=== PATIENT | female | born 1965 | race Caucasian/White ===

== ENCOUNTER 2016-10-05 23:25 | Day surgery (SDC) | payer OTHER ==
[~2016-10-05] VITALS: Ht 172.7 cm; Wt 78.5 kg
[~2016-10-05 23:25] MED LIST: ATN25T PO; CTLP20T PO; GUAI-365 PO; SMV20T PO
--- OUTSIDE RECORDS SUMMARY | 2016-10-05 23:29 | XMS REPORT | Referral Summary ---
Author Author [facility] Organization [facility] Address Unknown Phone Unavailable Care Team Providers Care Dragger Name Role Phone Juan Barnes PCP [phone] Encounter VC Date(s): 08/21/16 - 08/21/16 [facility] [address] [place], [place] [address] Discharge Disposition: 01-Home or Self Care Attending Physician: Rinku Torre MD Admitting Physician: Rinku Torre MD Referring Physician: Feliberto Barnes MD Vital Signs No data available for this section Problem List Condition Effective Dates Status Health Status Informant Allergic rhinitis Active (disorder)(Confirmed ) Chronic sinusitis Active (disorder)(Confirmed ) Essential Active hypertension (disorder)(Confirmed ) Hearing loss Active (disorder)(Confirmed ) Otitis media Active (disorder)(Confirmed ) Allergies, Adverse Reactions, Alerts Substance Reaction Severity Status Sulfabenzamide/Sulfacetam Active dolly/Sulfathiazole Medications ALPRAZolam 0.5 mg oral tablet 0.5 mg 1 tabs, Oral, BID, 0 Refill(s) Start Date: 08/21/16 Status: Orderedatenolol 50 mg oral tablet 50 mg 1 tabs, Oral, BID, # 180 tabs, 0 Refill(s) Start Date: 08/21/16 Status: Orderedatorvastatin Oral, Daily, 0 Refill(s) Start Date: 08/21/16 Status: OrderedCiprodex 0.3%-0.1% otic suspension 4 drops, Ear-Both, BID, X 7 days, # 7 mL, 0 Refill(s), Pharmacy: [id number] Start Date: 08/21/16 Stop Date: 08/28/16 Status: Orderedcitalopram 40 mg oral tablet 40 mg 1 tabs, Oral, Daily, # 30 tabs, 0 Refill(s) Start Date: 08/21/16 Status: OrderedCulturelle [employer] caps, Oral, Daily, 0 Refill(s) Start Date: 08/21/16 Status: Orderedfluticasone 27.5 mcg/inh nasal spray 1 sprays, Nasal, Daily, as needed for allergy symptoms, # 10 g, 0 Refill(s) Start Date: 08/21/16 Status: Orderedglimepiride 2 mg oral tablet 2 mg 1 tabs, Oral, Daily, # 30 tabs, 0 Refill(s) Start Date: 08/21/16 Status: OrderedMucinex mg, Oral, q12hr, 0 Refill(s) Start Date: 08/21/16 Status: OrderedWelchol Oral, 0 Refill(s) Start Date: 08/21/16 Status: Ordered Results No data available for this section Immunizations No data available for this section Procedures Procedure Date Related Diagnosis Body Site Sinus Tennis elbow Tonsillectomy Social History Social History Type Response Smoking Status Current every day smoker; Type: Cigarettes; Tobacco use per day: 1 pack or more Assessment and Plan No data available for this section
[2016-10-05] MEDS ORDERED: KETOROLAC 30 MG/ML (TORADOL) 1 ML VIAL IV ONE (23:45)
[2016-10-05] MEDS ORDERED: ONDANSETRON 2 MG/ML (Z0FRAN) 2 ML VIAL IV ONE (23:45)
[2016-10-05] MEDS ORDERED: SODIUM CHLORIDE FLUSH 10 ML SYR IV PRN (23:45)
[2016-10-05] MEDS ORDERED: SODIUM CHLORIDE FLUSH 3 ML SYR IV PRN (23:45)
[2016-10-06] VITALS (11 sets, daily range): BP systolic 101–129; BP diastolic 57–79
[2016-10-06 00:29] LABS: BASOPHILS % (AUTO) 0 % (0-2); EOSINOPHILS # (AUTO) 0.2 10^3uL; EOSINOPHILS % (AUTO) 2 % (0-4); LYMPHOCYTES # (AUTO) 3.2 X10^3; MEAN CORPUSCULAR HGB CONC 33.9 g/dL (31.0-37.0); MEAN CORPUSCULAR VOLUME 92 FL (80-100); MEAN PLATELET VOLUME 9.5 FL (6.0-9.5); MONOCYTES # (AUTO) 1.2 X10^3; MONOCYTES % (AUTO) 8 % (3-11); NEUTROPHILS # (AUTO) 9.3 X10^3; NEUTROPHILS % (AUTO) 66 % (51-67); PLATELET COUNT 304 10^3uL (150-450); WHITE BLOOD COUNT 13.99 10^3uL (4.0-11.0)
[2016-10-06 00:36] LABS: BILIRUBIN,URINE Negative (Negative); CLARITY,URINE Clear; COLOR,URINE Yellow; GLUCOSE, URINE (UA) Negative (Negative); LEUKOCYTE ESTERASE ,URINE Negative (Negative); UROBILINOGEN,URINE 0.2 mg/dL (0.2-1.0)
[2016-10-06] MEDS ORDERED: COLE625T PO (00:37)
[2016-10-06] MEDS ORDERED: ATOR10TA PO (00:37)
[2016-10-06] MEDS ORDERED: ALPR.5T PO (00:37)
[2016-10-06] MEDS ORDERED: GLIM2TAB PO (00:37)
[2016-10-06] MEDS ORDERED: LACT1CAP39 PO (00:37)
[2016-10-06] MEDS ORDERED: FLUT9.9S16 NSEACH (00:37)
[2016-10-06 00:39] LABS: ALBUMIN 3.9 g/dL (3.4-5.0); ANION GAP 13.5 MEQ/L (3-15); TOTAL PROTEIN 7.2 g/dL (6.4-8.5)
[2016-10-06 00:41] LABS: URINE CENTRIFUGED VOLUME 12 mL
[2016-10-06 00:43] LABS: RBC,URINE 20-50 /HPF
--- NOTE | 2016-10-06 04:09 | History and Physical (E) ---
Surgical History & Physical PCP: Feliberto Shore MD CC: RLQ abdominal pain. HPI: Four day history of vague lower abdominal discomfort, progressing to crampy /sharp right lower quadrant pain. Pain radiates to left lower quadrant and 7/ 10. Pain is worse with movement. No other modifying factors. 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 Currently no diarrhea or constipation. She has a flash designer, who is following. Had mild nausea earlier, but hungry now. No vomiting, fever, or chills. ROS: CONSTITUTION: Denies weight loss or gain. Denies fever or chills. Last meal was a Pop Tart at 2100 last night. HEENT: No change in vision or hearing. No sores in mouth, sore throat. Has chronic sinus drainage. CV: No chest pain, palpitations. PULM: No cough, shortness of breath, difficulty breathing. GI: See HPI. : No dysuria. No blood in urine. MS: No new muscle or joint aches and pains. NEURO: No numbness or tingling. No weakness. INTEG: No rashes, lesions, or sores. ENDO: Is cold natured. No polydipsia or polyuria. HEME/LYMPH: No easy bruising or bleeding. No swollen glands. No anesthetic complications. PSYCH: No change in mood or behavior. Coded Allergies: Sulfa (Sulfonamide Antibiotics) (Verified Allergy, Unknown, 10/06/16) Scheduled Atenolol (Atenolol) 50 MG PO DAILY (Reported) Atorvastatin (Lipitor) Unknown Dose PO DAILY (Reported) Citalopram Hydrobromide (Citalopram Hydrobromide) 40 MG PO DAILY (Reported) Colesevelam HCl (Welchol) 625 MG PO DAILY (Reported) Fluticasone Furoate (Flonase Sensimist) 9.9 ML NS DAILY (Reported) Glimepiride (Glimepiride) 2 MG PO DAILY (Reported) Guaifenesin/P-Ephed HCl (Mucinex D ER Tablet) 1 EACH PO DAILY (Reported) Lactobacillus Rhamnosus GG (Culturelle) 1 EACH PO DAILY (Reported) Scheduled PRN Alprazolam (Alprazolam) 0.5 MG PO DAILY PRN PRN ANXIETY (Reported) Discontinued Medications Simvastatin (Simvastatin) 20 MG PO DAILY (Reported) Discontinued Reason: Therapy changed PMH: Non-insulin dependent diabetes mellitus, hypertension, elevated cholesterol PSH: Recent sinus surgery, prior left elbow tendon transfer, tonsillectomy, colonoscopy (2015, normal). Social History: , no children. Works at [employer]. Smokes 1 ppd. No alcohol or illicit drugs. FMH: Parents with hypertension, sister with hypertension and multiple sclerosis. PHYSICAL EXAM GEN: Well developed, obese, in no distress. HEENT: [employer] and conjunctivae clear. No neck mass. CV: RR no murmurs or gallops LUNGS: Clear to P & A. No CVAT. ABD: Soft with normal BS. RLQ tenderness, voluntary guarding, rebound, referred rebound. Positive heel drop test. No mass, organomegaly, or hernia. EXTREMITIES: No edema or tenderness. Pulses 2+ INTEG: No rash or jaundice. NEURO: No focal deficits. Patient is alert and oriented with appropriate affect. Vital Signs Date Time Temp Pulse Resp B/P Pulse Ox O2 Delivery O2 Flow Rate FiO2 10/06/16 00:04 97 Room Air 10/05/16 23:52 99.8 84 18 124/79 Lab Results: Laboratory Results Past 24 Hrs 10/06/16 00:10: CBC shows WBC of 14,000 with normal diff. CMP significant for glucose 135. Lipase normal. Urinalysis shows 2050 RBCs per hpf Imaging: CT shows markedly dilated appendix with mesenteric stranding. Also thickening of thickening of the proximal jejunum, sigmoid, and terminal ileum. Impression: Acute appendicitis. History of hypertension, non-insulin dependent diabetes mellitus, C. Diff colitis, tobacco use, obesity. Bowel wall thickening on CT. Plan: Proceed later this morning to OR for laparoscopic appendectomy. Options, nature , risks discussed with patient (including reactivation of C. Diff), who understands and wishes to proceed. Will consult hospitalist for medical management. She will need further evaluation of other bowel findings later by her flash designer. End of Report . UMA BELTRAN MD Oct 06, 2016 04:03
[2016-10-06] MEDS ORDERED: ONDANSETRON 2 MG/ML (Z0FRAN) 2 ML VIAL IV PRN (04:10)
[2016-10-06] MEDS ORDERED: ACETAMINOPHEN 500 MG TAB (TYLENOL) PO ONE (04:10)
[2016-10-06] MEDS ORDERED: PIPERACILLIN/TAZOBACTAM 3.375 GM in SODIUM CHLORIDE 50 ML IV ONE (04:10)
[2016-10-06] MEDS ORDERED: morphine INJ 4 MG/ML 1 ML SYRINGE IV PRN (04:10)
--- NOTE | 2016-10-06 04:12 | NUR ---
Patient admitted to room 306 at this time. Reports pain 4/10, reports that she is comfortable after recieving pain medication in the ED. No needs at this time. Hibicleanse scrub completed per order. IV fluids started at this time. Patient has signed OR consent. No questions at this time. Will continue to monitor.
[2016-10-06] MEDS ORDERED: PIPERACILLIN/TAZOBACTAM 3.375 GM (ZOSYN) VIAL IV ONE (05:22)
[2016-10-06] MEDS ORDERED: LACTATED RINGERS 1,000 ML IV ONE (05:22)
[2016-10-06] MEDS ORDERED: SODIUM CHLORIDE 50 ML IV ONE (05:23)
--- NOTE | 2016-10-06 06:28 | NUR ---
Patient rests in bed since admission without needs. States that pain remains manageable and that she does not need any pain medication. No nausea. No needs at this time.
--- NOTE | 2016-10-06 07:35 | Diagnostic Imaging Report ---
PROCEDURE: CT abdomen and pelvis with and without contrast. TECHNIQUE: Precontrast acquisitions were acquired through the abdomen and pelvis. Multiple contiguous axial images were obtained through the abdomen and pelvis after the administration of intravenous contrast. INDICATION: Right flank pain. FINDINGS: There is some atelectasis at both lung bases and a wedge-shaped area of consolidation at the right posterior lung base. Liver appears normal. Gallbladder is present. There is a 5 mm cyst in the tail of the pancreas. Spleen is not enlarged. Adrenals are normal. Kidneys appear normal. Small bowel is not dilated. The appendix is distended with a thickened wall and surrounding induration consistent with acute appendicitis. There is a small amount of intraperitoneal free fluid. Uterus is present. Adnexa are unremarkable. IMPRESSION: Acute appendicitis. I agree with preliminary interpretation. Dictated by: Dictated on workstation # [id number]
--- NOTE | 2016-10-06 07:35 | NUR ---
Patient sleeping in bed upon shift assessment. Arouses easily to verbal stimuli. Denies pain while at rest but after walking into bathroom, patient reports RLQ pain rated 2/10 on pain scale. Denies nausea or SOA. HR RRR. Lung sounds CTAB. Bowel sounds audible in all quadrants. Abdomen tender to touch. Updated on plan of care for shift including pain management, tentative surgery time, and activity. Call light in reach.
[2016-10-06] MEDS ORDERED: BUPIVACAINE/EPINEPHRINE 0.25%-1:200,000 (MARCAINE) 30 ML VIAL INJ ONE (07:42)
--- NOTE | 2016-10-06 07:42 | Diagnostic Imaging Report ---
INDICATION: Abdominal pain. PA chest, supine and upright abdominal images were obtained. FINDINGS: Lungs are clear. There is no effusion or pneumothorax. There is no intraperitoneal free air. Bowel gas pattern is normal. There are no pathologic masses or calcifications. IMPRESSION: Negative abdomen. Dictated by: Dictated on workstation # [id number]
[2016-10-06] MEDS ORDERED: morphine INJ 2 MG/ML 1 ML SYRINGE IV PRN (07:50)
[2016-10-06] MEDS ORDERED: LACTATED RINGERS 1,000 ML IV SCH (08:00)
[2016-10-06] MEDS ORDERED: CITA40TA5 PO (08:41)
[2016-10-06] MEDS ORDERED: ATOR40TA2 PO (08:41)
[2016-10-06] MEDS ORDERED: ATN50T PO (08:41)
--- NOTE | 2016-10-06 09:54 | NUR ---
MED REC COMPLETED-current med list obtained from Ext Med History application and retail pharmacy ([facility]).
[2016-10-06] MEDS ORDERED: ROCURONIUM 50 MG/5 ML (ZEMURON) VIAL IV ONE (10:17)
[2016-10-06] MEDS ORDERED: PROPOFOL 20 ML IV ONE (10:17)
[2016-10-06] MEDS ORDERED: ALFENTANIL 500 MCG/ML (ALFENTA) 5 ML AMP IV ONE (10:17)
[2016-10-06] MEDS ORDERED: ONDANSETRON 2 MG/ML (Z0FRAN) 2 ML VIAL ONE (10:17)
[2016-10-06] MEDS ORDERED: diphenhydrAMINE 50 MG/ML INJ (BENADRYL) ONE (10:17)
--- NOTE | 2016-10-06 10:28 | NUR ---
Patient to OR via bed.
[2016-10-06] MEDS ORDERED: SCOPOLAMINE 1.5 MG (TRANSDERM-SCOP) PATCH TD ONE (10:39)
[2016-10-06] MEDS ORDERED: KETOROLAC 60 MG/2 ML (TORADOL) VIAL IM ONE (11:53)
[2016-10-06] MEDS ORDERED: NEOSTIGMINE 1 MG/ML SYRINGE ONE (11:53)
[2016-10-06] MEDS ORDERED: GLYCOPYRROLATE 0.2 MG/ML (ROBINUL) 1 ML VIAL ONE (11:53)
[2016-10-06] MEDS ORDERED: ACETAMINOPHEN 325 MG TAB (TYLENOL) PO PRN (12:15)
--- NOTE | 2016-10-06 12:15 | Post Operative Note (E) ---
Post Op Note 10/06/16 12:13 Pre-Operative Diagnosis: Acute appendicitis Post-Operative Diagnosis: Same Procedure: Laparoscopic appendectomy Surgeon: Anjel Attending Physician: Мария Findings: Same. Anesthesia: GOT EBL: 20 ml Drains: None Specimem: appendix, photos Complications None Condition: Good. Op note dict #[id number] UMA BELTRAN MD Oct 06, 2016 12:15
--- NOTE | 2016-10-06 12:50 | NUR ---
Patient returns to room 306 via bed. Alert and reports abdominal pain rated 3/10 on pain scale. Three abdominal incisions clean and dry. No drainage noted. Updated on plan of care including pain management, diet, ambulating, and voiding. at bedside. Call light in reach.
[2016-10-06] MEDS: oxyCODONE IMMEDIATE RELEASE 5 MG (OXYIR) TAB PO PRN ×2 (12:52→17:41)
--- NOTE | 2016-10-06 13:25 | OPERATIVE REPORT ---
DATE OF OPERATION: 10/06/2016 PRE-OPERATIVE DIAGNOSIS: Acute appendicitis POST-OPERATIVE DIAGNOSIS: Acute appendicitis OPERATIVE PROCEDURE: Laparoscopic appendectomy SURGEON: Duarte Hobbs MD WHISKEY FILTERER: Kellie Garcia RN, [facility] ANESTHESIA: General orotracheal POSITION: Trendelenburg with left rotation PREP: Chlorhexidine ESTIMATED BLOOD LOSS: 20 mL FINDINGS: Acutely inflamed, and dilated appendix which was adherent to the surrounding mesentery. Within this area of adhesion was a tiny pocket of purulent material. Slightly inflamed adjacent terminal ileum. DESCRIPTION OF PROCEDURE: Following satisfactory induction of anesthesia, the patient was prepped and draped in sterile fashion. Local anesthetic of 0.25% Marcaine with epinephrine was infiltrated at planned incision sites. A small, supraumbilical vertical midline incision was made. This was carried down to and through the fascia under direction vision. The Norma blunt tipped cannula was inserted and anchored to fascia with a pursestring suture of #0 Vicryl. The videolaparoscope was introduced confirming intraperitoneal placement and the peritoneal cavity insufflated to a maximum pressure of 15 mmHg with carbon dioxide. Accessory cannulas were then placed under direct vision as follows. A 5-mm cannulas in the left lower quadrant and suprapubic positions. Care was taken to avoid the patient's left lower quadrant tattoo. Routine inspection revealed the above findings. The liver and gallbladder appeared normal, as did the peritoneal surfaces. Using blunt dissection, the appendix was dissected off the mesentery. The appendiceal mesentery was dissected free. Windows were created in the mesentery. The appendiceal mesentery was then transected using the Ethicon Harmonic scalpel dina in multiple bites. The base of the appendix was doubly ligated with #0 Endoloops and a third Endoloop applied across the specimen side. The appendix was transected sharply. The mucosa of the appendiceal stump was cauterized with electrocautery. The specimen was placed in the specimen bag. The operative site was irrigated with saline, which was evacuated demonstrating good hemostasis. Closure was accomplished as follows. Accessory cannulas were removed under direct vision revealing good hemostasis at their insertion sites. The peritoneum was evacuated of excess carbon dioxide. The appendix in specimen bag was removed by way of the supraumbilical incision and submitted to pathology. Supraumbilical incision fascia was closed with the previously placed pursestring suture of #0 Vicryl. The skin incisions were closed with continuous subcuticular suture of 4-0 Monocryl and Dermabond dressing. The patient tolerated the procedure well and transferred to recovery in stable condition. Final instrument, needle and sponge counts correct.
--- NOTE | 2016-10-06 16:10 | NUR ---
Patient tolerates PO intake of clear liquids. Ambulates 1/2 lap in almanzar. IV saline locked per order. Diet advanced to medium diabetic. Has voided without difficulty. Will continue to monitor.
--- NOTE | 2016-10-06 17:39 | Progress Note (E) ---
Progress Note Pain controlled. Tolerating po well. Ambulating and voiding without difficulty. Vitals stable, lungs clear, abdomen soft with normal BS. Incisions intact. Condition: good Discharge home. UMA BELTRAN MD Oct 06, 2016 17:39
--- NOTE | 2016-10-06 17:43 | Discharge Instructions (E) ---
Discharge Instructions Instructions Keep wounds clean. No dressing required. May shower, but no immersion in water for 2 weeks. Call for fever over 100.5, increased pain, nausea, wound redness, or purulent drainage Activity Instructions Normal as is comfortable. No lifting over 20 lbs for [address] pain free off pain meds. Doctor's Appointment 2 weeks, Dr. Hobbs, . Discharge Diet: Regular UMA HOBBS MD Oct 06, 2016 17:43
[2016-10-06] MEDS ORDERED: OXC5T PO (17:44)
--- NOTE | 2016-10-06 18:10 | NUR ---
Dr. Hobbs here to see patient. Discharge order received. IV Discontinued with catheter intact. No redness or swelling noted at insertion site. Instructions provided to patient and with verbal and written understanding expressed. Prescription provided to patient. Dismissed via wheelchair accompanied by [facility] and . No further needs.
--- OUTSIDE RECORDS SUMMARY | 2016-10-09 08:50 | XMS REPORT | Continuity of Care Document ---
Author Author [facility] Address Unknown Phone Unavailable Care Team Providers Care Dry Cleaning Supervisor Name Role Phone Feliberto Shore MD PCP [phone] Insurance Providers Payer Name Policy Number Subscriber Name Relationship [employer] [id number] Rayne Smith 16 Self / Same As Patient Advance Directives Directive Response Recorded Date/Time Advanced Directives No 10/06/16 4:14am Chief Complaint and Reason for Visit Chief Complaint ACUTE APPENDICITIS Reason for Visit Appendicitis Problems Active Problems Medical Problem Onset Date Status Appendicitis Unknown Acute Medications Current Home Medications Medication Dose Units Route Directions Days/Qty Instructions Start Date Glimepiride 2 Mg 2 Mg ORAL Daily 10/06/16 Lactobacillus Rhamnosus Gg 1 Each 1 Each ORAL Daily 10/06/16 Alprazolam (Xanax) 0.5 Mg 0.25-0.5 Mg ORAL Every 8HRS as needed for Anxiety 10/06/16 Colesevelam Hcl 625 Mg 1,250 Mg ORAL Daily 10/06/16 Fluticasone Furoate 9.9 Ml 1-2 Sprays Each Nostril Daily 10/06/16 Atenolol (Tenormin) 50 Mg 50 Mg ORAL Daily 10/06/16 Citalopram Hydrobromide (Celexa) 40 Mg 40 Mg ORAL Daily 10/06/16 Atorvastatin Calcium 40 Mg 40 Mg ORAL Daily 10/06/16 Oxycodone Hcl (Roxicodone) 5 Mg 5 Mg ORAL Every 4HRS as needed for Pain 4- 6 Numeric Scale 30 10/06/16 Past Home Medications Medication Directions Ordered Status Atenolol (Tenormin) 25 Mg Tablet, 50 Mg Oral Daily 02/27/13 Discontinued Simvastatin (Zocor) 20 Mg Tablet, 20 Mg Oral Daily 02/27/13 Discontinued Citalopram Hydrobromide (Celexa) 20 Mg Tablet, 40 Mg Oral Daily 02/27/13 Discontinued Guaifenesin/Pseudoephedrine Hcl 1 Each Tab.er.12h, 1 Each Oral Daily Discontinued Atorvastatin 10 Mg Tablet, Unknown Dose Oral Daily 10/06/16 Discontinued Social History Query Response Start Date Stop Date Smoking Status Heavy tobacco smoker 10+ Hospital Discharge Instructions Patient's Instructions Instructions Instructions Keep wounds clean. No dressing required. May shower, but no immersion in water for 2 weeks. Call for fever over 100.5, increased pain, nausea, wound redness, or purulent drainage Activity Instructions Normal as is comfortable. No lifting over 20 lbs for [address] until pain free off pain meds. Doctor's Appointment 2 weeks, Dr. Beltran, . Discharge Diet: Regular Discharge Plan of Care Discharge Plan of Care #1 Problem: Pain Goal: Prevention post infection Instructions for meeting goal: follow all instructions Plan of Care Discharge Date 10/06/16 6:09pm Disposition 01 HOME OR SELF-CARE Prescriptions See Medication Section Care Plan and Goals See Discharge Instructions Section Functional Status Query Response Date Recorded Level of Conscious Alert Oriented x4 October 06, 2016 7:47am Movement Moves extremities October 06, 2016 7:47am Allergies, Adverse Reactions, Alerts Allergen Type Severity Reaction Status Last Updated Sulfa (Sulfonamide Antibiotics) Allergy Unknown Active 10/06/16 Immunizations No immunization records. Vital Signs Acute Vital Signs Vital Response Date/Time Temperature (Fahrenheit) 97.4 10/06/2016 3:09pm Pulse 69 bpm 10/06/2016 3:09pm Respirations 20 10/06/2016 3:09pm Height 5 ft 8 in Weight 173 lb Body Mass Index 26.0 kg/m^2 Results Laboratory Results Test Name Result Units Flags Reference Collection Date/Time Result Date/ Time Comments White Blood Count 13.99 10^3uL H 4.0-11.0 10/06/2016 12:10/06/2016 12:30am Red Blood Count 4.10 10^6uL 4.00-5.00 10/06/2016 12:10/06/2016 12: 30am Hemoglobin 12.7 g/dL 12.0-15.5 10/06/2016 12:10/06/2016 12:30am Hematocrit 37.50 % 35.00-45.00 10/06/2016 12:10/06/2016 12:30am Mean Corpuscular Volume 92 FL 80-100 10/06/2016 12:10/06/2016 12: 30am Mean Corpuscular Hemoglobin 31.0 PG 26.0-34.0 10/06/2016 12:2016 12:30am Mean Corpuscular Hemoglobin Concent 33.9 g/dL 31.0-37.0 10/06/2016 12: 10/06/2016 12:30am Red Cell Distribution Width 12.4 % 11.8-15.6 10/06/2016 12:2016 12:30am Platelet Count 304 10^3uL 150-450 10/06/2016 12:10/06/2016 12: 30am Mean Platelet Volume 9.5 FL 6.0-9.5 10/06/2016 12:10/06/2016 12: 30am Neutrophils (%) (Auto) 66 % 51-67 10/06/2016 12:10/06/2016 12: 30am Lymphocytes (%) (Auto) 23 % 20-46 10/06/2016 12:10/06/2016 12: 30am Monocytes (%) (Auto) 8 % 3-11 10/06/2016 12:10/06/2016 12:30am Eosinophils (%) (Auto) 2 % 0-4 10/06/2016 12:10/06/2016 12:30am Basophils (%) (Auto) 0 % 0-2 10/06/2016 12:10/06/2016 12:30am Neutrophils # (Auto) 9.3 X10^3 10/06/2016 12:10/06/2016 12:30am Lymphocytes # (Auto) 3.2 X10^3 10/06/2016 12:19am 10/06/2016 12:30am Monocytes # (Auto) 1.2 X10^3 10/06/2016 12:19am 10/06/2016 12:30am Eosinophils # (Auto) 0.2 10^3uL 10/06/2016 12:19am 10/06/2016 12: 30am Basophils # (Auto) 0.1 10^3uL 10/06/2016 12:19am 10/06/2016 12:30am Volume Urine Centrifuged 12 mL 10/06/2016 12:10am 10/06/2016 12: 43am Urine Collection Type CLEAN CATCH 10/06/2016 12:10am 10/06/2016 12: 43am Urine Color Yellow 10/06/2016 12:10am 10/06/2016 12:36am Urine Clarity Clear 10/06/2016 12:10am 10/06/2016 12:36am Urine pH 5.0 5.0 - 8.0 10/06/2016 12:10am 10/06/2016 12:36am Urine Specific [place] 1.025 1.005-1.030 10/06/2016 12:10am 2016 12:36am Urine Protein Negative Negative 10/06/2016 12:10am 10/06/2016 12: 36am Urine Glucose (UA) Negative Negative 10/06/2016 12:10am 10/06/2016 12 :36am Urine Blood 3+ H Negative 10/06/2016 12:10am 10/06/2016 12:36am Urine Ketones Negative Negative 10/06/2016 12:10am 10/06/2016 12: 36am Urine Nitrite Negative Negative 10/06/2016 12:10am 10/06/2016 12: 36am Urine Bilirubin Negative Negative 10/06/2016 12:10am 10/06/2016 12: 36am Urine Urobilinogen 0.2 mg/dL 0.2-1.0 10/06/2016 12:10am 10/06/2016 12: 36am Urine Leukocyte Esterase Negative Negative 10/06/2016 12:10am 2016 12:36am Urine Microscopic RBC 20-50 /HPF 10/06/2016 12:10am 10/06/2016 12: 43am Urine WBC None Seen /HPF 10/06/2016 12:10am 10/06/2016 12:43am Urine Bacteria Rare /HPF 10/06/2016 12:10a10/06/2016 12:43am Urine Squamous Epithelial Cells 5-10 /LPF 10/06/2016 12:10a2016 12:43am Urine Mucus 1+ 10/06/2016 12:10a10/06/2016 12:43am Sodium Level 142 mmol/L 135-150 10/06/2016 12:1910/06/2016 12:39am Potassium Level 3.7 mmol/L 3.5-5.1 10/06/2016 12:10/06/2016 12: 39am Chloride Level 110 mmol/L H 98-108 10/06/2016 12:10/06/2016 12: 39am Carbon Dioxide Level 23 mmol/L 22-29 10/06/2016 12:10/06/2016 12: 39am Anion Gap 13.5 MEQ/L 3-15 10/06/2016 12:10/06/2016 12:39am Blood Urea Nitrogen 12 mg/dL 7-18 10/06/2016 12:10/06/2016 12: 39am Creatinine 0.65 mg/dL 0.6-1.2 10/06/2016 12:10/06/2016 12:39am BUN/Creatinine Ratio 18 10-20 10/06/2016 12:10/06/2016 12:39am Estimat Glomerular Filtration Rate 115.4 10/06/2016 12:2016 12:39am Estimated GFR (Non- 95.4 10/06/2016 12:2016 12:39am Glucose Level 135 mg/dL H 70-110 10/06/2016 12:10/06/2016 12:39am Calculated Osmolality 276 mosm/L L 280-300 10/06/2016 12:2016 12:39am Calcium Level 9.2 mg/dL 8.8-10.8 10/06/2016 12:10/06/2016 12:39am Calcium/Ionized Calcium Ratio 4.0 mg/dL 3.8-4.6 10/06/2016 12: 12:39am Total Bilirubin 0.5 mg/dL 0.1-1.0 10/06/2016 12:1910/06/2016 12: 39am Alkaline Phosphatase 126 U/L 38-126 10/06/2016 12:10/06/2016 12: 39am Aspartate Amino Transf (AST/SGOT) 41 U/L H 15-37 10/06/2016 12:19 12:39am Alanine Aminotransferase (ALT/SGPT) 63 U/L 30-65 10/06/2016 12:19 12:39am Total Protein 7.2 g/dL 6.4-8.5 10/06/2016 12:10/06/2016 12:39am Albumin 3.9 g/dL 3.4-5.0 10/06/2016 12:10/06/2016 12:39am Albumin/Globulin Ratio 1.181 1.1-1.8 10/06/2016 12:1910/06/2016 12 :39am Amylase Level 64 U/L 25-115 10/06/2016 12:1910/06/2016 12:39am Lipase 108 U/L 23-300 10/06/2016 12:1910/06/2016 12:39am C-Reactive Protein 6.90 mg/dL H 0.0-0.9 10/06/2016 12:1910/06/2016 2: 19am Procedures No known history of procedures. Encounters Encounter Location Arrival/Admit Date Discharge/Depart Date Attending Provider Discharged Inpatient (obs) [facility] 10/06/16 3:44am 10/06/16 6: 09pm UMA BELTRAN MD Recent Diagnosis Appendicitis
== END 2016-10-06 23:31 | disposition home or self-care (01) ==
LOC: ED 23:26 → UNDOADMIN 10-06 03:19 → MED/SURG 10-06 03:19 → UNDOADMOB 10-06 03:44 → UNDODISOB 10-06 18:09 → ASC 10-06 23:30 → MED/SURG 10-09 03:44
PROVIDERS: ATTEND Surgery
DX: K35.3 Acute appendicitis with localized peritonitis (principal); E11.9 Type 2 diabetes mellitus without complications; I10 Essential (primary) hypertension; E78.5 Hyperlipidemia, unspecified; F17.210 Nicotine dependence, cigarettes, uncomplicated
CPT/HCPCS: 36415; 44970; 74022; 74178; 80053; 81003; 81015; 82150; 83690; 85025; 86140; 93005; 96361; 96374; 96375; 99218; 99285; J1200; J1885; J2405; J2710; J3490; J7030; Q9967; 99284

== ENCOUNTER 2016-10-17 02:30 | Inpatient (IN) | payer OTHER ==
[~2016-10-17] VITALS: Ht 172.7 cm; Wt 77.9 kg
--- NOTE | 2016-10-17 03:30 | NUR ---
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 Rates pain 5/10 at this time.
[2016-10-17 03:46] LABS: MEAN CORPUSCULAR HEMOGLOBIN 30.2 PG (26.0-34.0); MEAN CORPUSCULAR HGB CONC 33.2 g/dL (31.0-37.0); MEAN CORPUSCULAR VOLUME 91 FL (80-100); MEAN PLATELET VOLUME 9.2 FL (6.0-9.5); PLATELET COUNT 408 10^3uL (150-450)
[2016-10-17 03:55] LABS: BILIRUBIN,URINE Negative (Negative); GLUCOSE, URINE (UA) Negative (Negative); LEUKOCYTE ESTERASE ,URINE Negative (Negative); PH,URINE 5.5 (5.0 - 8.0); UROBILINOGEN,URINE 0.2 mg/dL (0.2-1.0)
[2016-10-17 03:58] LABS: WHITE BLOOD COUNT 30.39 10^3uL (4.0-11.0)
[2016-10-17 04:00] LABS: ALBUMIN 4.1 g/dL (3.4-5.0); ANION GAP 18.7 MEQ/L (3-15); TOTAL PROTEIN 7.6 g/dL (6.4-8.5)
[2016-10-17 04:00] LABS: CLARITY,URINE Slightly Cloudy; COLOR,URINE Dark Yellow
[2016-10-17 04:03] LABS: BAND NEUTROPHILS % 0 % (0-6); EOSINOPHILS % 0 % (0-4); LYMPHOCYTES # 2.1 #; MONOCYTES # 1.2 #; MONOCYTES % 4 % (3-11); RBC MORPH SEE REFERENCE (NORMAL); SEGMENTED NEUTROPHILS % 89 % (51-67); TOTAL CELLS COUNTED 100
[2016-10-17 04:04] LABS: ANISOCYTOSIS SLIGHT
[2016-10-17 04:04] LABS: URINE CENTRIFUGED VOLUME 12 mL
[2016-10-17 04:05] LABS: RBC,URINE 20-50 /HPF
[2016-10-17] MEDS ORDERED: ONDANSETRON 2 MG/ML (Z0FRAN) 2 ML VIAL IV ONE (04:25)
[2016-10-17] MEDS ORDERED: SODIUM CHLORIDE FLUSH 3 ML SYR IV ONE (04:25)
[2016-10-17] MEDS ORDERED: HYDROmorphone 1 MG/ML (DILAUDID) SYRINGE IV ONE (04:25)
--- NOTE | 2016-10-17 04:45 | NUR ---
Pt to ct scan via stretcher.
--- NOTE | 2016-10-17 05:00 | NUR ---
Pt back to room from ct scan.
--- NOTE | 2016-10-17 05:07 | NUR ---
O2 applied via nc at 2L. O2 sat 89% on room air. O2 sat increased to 93% on 2L.
[2016-10-17] MEDS ORDERED: PIPERACILLIN/TAZOBACTAM 3.375 GM in SODIUM CHLORIDE 50 ML IV ONE (06:00)
--- NOTE | 2016-10-17 06:25 | NUR ---
Pt arrives to 303 via w/c from ED. Ambulates to weight chair and bed independently. Antibiotics infusing w/o difficulty. Resp even and non labored on RA. Surgical incisions healing well. See admission assessment for further details.
[2016-10-17 06:28] VITALS: BP 123/71
[2016-10-17 06:35] VITALS: BP 123/71
[2016-10-17] MEDS ORDERED: HYDROmorphone 1 MG/ML (DILAUDID) SYRINGE IV PRN (07:00)
[2016-10-17] MEDS ORDERED: ONDANSETRON 2 MG/ML (Z0FRAN) 2 ML VIAL IV PRN (07:00)
[2016-10-17 07:21] VITALS: BP 102/61
--- NOTE | 2016-10-17 08:19 | Diagnostic Imaging Report ---
INDICATION: Abdominal pain Abdominal series performed in a routine fashion with a frontal chest radiograph and supine and upright abdominal films. Frontal chest view shows heart normal in size with the lungs clear. There is no pneumothorax or pleural fluid. There is no free intraperitoneal air. The abdominal bowel gas pattern is unremarkable. There is moderate stool in the colon. There are phleboliths in the pelvis. IMPRESSION: No sign of free air or bowel obstruction. Unremarkable bowel gas pattern. No acute pulmonary infiltrate. Dictated by: Dictated on workstation # [id number]
--- NOTE | 2016-10-17 08:38 | Diagnostic Imaging Report ---
PROCEDURE: CT abdomen and pelvis with contrast. TECHNIQUE: Multiple contiguous axial images were obtained through the abdomen and pelvis after administration of intravenous contrast. INDICATION: Pain. 10 days postop appendectomy. Compared with study 10/06/2016. FINDINGS: There has been interval appendectomy. There is a rim-enhancing new somewhat bilobed-configured fluid collection in the cul-de-sac measuring 6.6 cm transverse with maximal AP dimension 2.2 cm and measuring 2.8 cm cephalocaudal in the coronal reconstructions. Some thickening of the adjacent rectosigmoid which may be secondary inflammation as well as some presacral edema. No pericecal fluid collection. Bibasilar partial atelectasis. The liver, gallbladder, bile ducts, spleen, adrenals, pancreas all unremarkable. There is atherosclerotic aortic disease without aneurysm. No abdominal wall fluid collection. The urinary bladder unremarkable with no intravesical air. There is no hydronephrosis. IMPRESSION: Rim-enhancing fluid collection in the pelvic cul-de-sac suspicious for abscess with adjacent edema and regional inflammatory change. No pericecal fluid collection. Interval appendectomy noted. Unobstructed urinary tracts. Bibasilar partial atelectasis. Agree with preliminary. Dictated by: Dictated on workstation # [id number]
--- NOTE | 2016-10-17 08:48 | History and Physical (E) ---
Surgical History & Physical PCP: Feliberto Shore MD CC: Pelvic pain HPI: This patient presents to the emergency room with onset of suprapubic pain yesterday. The pain initially was crampy but then progressed to become sharp in nature. Upon presentation to the emergency room pain was 9 out of 10. Currently 4 out of 10. The pain occasionally radiates to the rectal area. No modifying factors. No change with bowel movements or urination. Patient denies dysuria, hematuria, pyuria, pneumaturia, fecal urea. She had 2 soft formed bowel movements yesterday. No diarrhea. No melena or bright red blood per rectum. Patient had mild nausea yesterday but no vomiting. No fever or chills. Patient had laparoscopic appendectomy for acute appendicitis 10 days ago. 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 ROS: CONSTITUTION: Denies weight loss or gain. Denies fever or chills. HEENT: No change in vision or hearing. No sores in mouth, sore throat. Has chronic sinus drainage. CV: No chest pain, palpitations. PULM: No cough, shortness of breath, difficulty breathing. GI: See HPI : See HPI MS: No new muscle or joint aches and pains. NEURO: No numbness or tingling. No weakness. INTEG: No rashes, lesions, or sores. ENDO: Is cold natured. No polydipsia or polyuria. HEME/LYMPH: No easy bruising or bleeding. No anesthetic problems. No swollen glands. PSYCH: No change in mood or behavior. Last meal was at 1800 yesterday. She had a sip of water at 0200 today. Coded Allergies: Sulfa (Sulfonamide Antibiotics) (Verified Allergy, Unknown, 10/17/16) Scheduled Atenolol (Atenolol) 50 MG PO DAILY (Reported) Atorvastatin (Lipitor) 40 MG PO DAILY (Reported) Citalopram Hydrobromide (Citalopram Hydrobromide) 40 MG PO DAILY (Reported) Colesevelam HCl (Welchol) 1,250 MG PO DAILY (Reported) Fluticasone Furoate (Flonase Sensimist) 1-2 SPRAYS NSEACH DAILY (Reported) Glimepiride (Glimepiride) 2 MG PO DAILY (Reported) Lactobacillus Rhamnosus GG (Culturelle) 1 EACH PO DAILY (Reported) Scheduled PRN Alprazolam (Alprazolam) 0.25-0.5 MG PO Q8H PRN PRN ANXIETY (Reported) Oxycodone HCl (OxyIR) 5 MG PO Q4H PRN PRN Pain 4-6 numeric scale PMH: [id number] diabetes mellitus, diet-controlled, hypertension, elevated cholesterol. PSH: Laparoscopic appendectomy, 10/06/2016. Sinus surgery, left elbow tendon transfer, tonsillectomy, colonoscopy (2015, normal). Social History: Patient is with no children. She works in [employer] at a [employer] She smokes 1 pack per day and denies alcohol or illicit drug use. FMH: Parents with hypertension, sister with hypertension and multiple sclerosis. 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 Neck supple, nontender, without mass. CV: RR with no murmurs or gallops. LUNGS: Clear to P & A. No CVA tenderness. ABD: Abdomen is soft with mild suprapubic tenderness and voluntary guarding with deep palpation. No rebound tenderness. Remainder of abdomen is nontender. Normal bowel sounds present. No mass, organomegaly, or hernia. Incisions from surgery are well-healed with no erythema, tenderness, crepitance, or fluctuance. No groin lymphadenopathy. : Bimanual exam revealed mild cervical motion tenderness with no palpable mass, though there is a suggestion of fullness in the cul-de-sac area. Digital rectal exam revealed no palpable mass or tenderness. Normal sphincter tone present. EXTREMITIES: No edema or tenderness. Pulses 2+ INTEG: No rash or jaundice. NEURO: No focal deficits. Patient is alert and oriented with appropriate affect. Vital Signs Date Time Temp Pulse Resp B/P Pulse Ox O2 Delivery O2 Flow Rate FiO2 10/17/16 07:21 98.0 77 16 102/61 91 Room air 10/17/16 06:03 2 Lab Results: Laboratory Results Past 24 Hrs 10/17/16: Laboratory values significant for white count of 30,390 with 89 polys and 0 bands. Metabolic profile significant for glucose 165, ALP 72, and alkaline phosphatase 137. C-reactive protein was elevated at 4.70. Lipase is normal. Urinalysis showed 20-50 red cells per high-power field with specific gravity 1.025, otherwise negative. Imaging: Plain films show nonspecific bowel gas pattern. CT scan of the abdomen and pelvis show a 6 cm pelvic abscess. Impression: Postoperative pelvic abscess, status post laparoscopic appendectomy. History of diet-controlled diabetes, hypertension, recent C. difficile colitis. Plan: Admit (intravenous antibiotic therapy. Admit, intravenous antibiotic therapy, abscess drainage. The patient can be transferred to [place] for this today.The abscess is too far cephalad to allow percutaneous rectal drainage. I reviewed the films with radiologist, Dr. Fitzgerald, in [place]. He feels this can be drained percutaneously under CT guidance via a transgluteal approach. He wants to have a PT PTT drawn prior to the procedure. If not, the patient will require surgical drainage by way of laparotomy. End of Report . UMA BELTRAN MD Oct 17, 2016 08:28
[2016-10-17] MEDS: oxyCODONE IMMEDIATE RELEASE 5 MG (OXYIR) TAB PO PRN (09:26)
--- NOTE | 2016-10-17 09:26 | NUR ---
PRN OxyIR given at this time for c/o lower medial abd pain rated 6/10. Pt just returned from shower. Informed pt we would let her know as soon as we have any info for transfer to [place] for drain procedure. NS @ 100mL/hr infusing at this time.
[2016-10-17] MEDS ORDERED: PIPERACILLIN/TAZOBACTAM 3.375 GM (ZOSYN) VIAL IV ONE (10:51)
[2016-10-17] MEDS ORDERED: SODIUM CHLORIDE 100 ML ONE (10:51)
[2016-10-17] MEDS: PIPERACILLIN/TAZOBACTAM 3.375 GM in SODIUM CHLORIDE 100 ML IV SCH ×2 (11:03→20:27)
--- NOTE | 2016-10-17 11:25 | NUR ---
Pt transferred to [facility] at 1114 via EMS. Skin warm, dry, intact. Resprs nonlabored, even on RA. NS infusing at 100mL/hr concurrently with Zosyn at 100mL/hr. to follow to receiving facility. Belongings sent with patient include pajama pants and slippers that were on pt and pt's cell phone. Belongings left in room include pt's robe from home. Report given to Marietta Peck RN at [facility] at 1117.
--- NOTE | 2016-10-17 20:00 | NUR ---
Pt returned from [place] via EMS at this time. Denies nausea, vomiting, rates pain 4/10 at this time. Reports she feels much better than she did earlier, after surgery. EMS says pt was on 2LPM of O2 via NC for desaturation, and had a temp of 101.2, when last checked, when checked at 1999 temp is 96.6 orally. Drain to buttock is in place, has small amount of serosanguineous drainage at this time. SL is patent, no redness, swelling, or s/s of infection noted at this time. Dr. Hobbs was notified of pts arrival. Call light is in reach, will continue to monitor.
[2016-10-17 20:19] VITALS: BP 104/54
[2016-10-17] MEDS ORDERED: SODIUM CHLORIDE 250 ML ONE (20:22)
[2016-10-17] MEDS: SODIUM CHLORIDE FLUSH 10 ML SYR IV PRN (20:27)
--- NOTE | 2016-10-17 20:30 | NUR ---
Gave 1800 Zosyn at 2030, will give 0000 dose late and try to get it back on schedule by the 0600 dose.
[2016-10-17] MEDS: ATENOLOL 50 MG (TENORMIN) TAB PO SCH (21:23)
[2016-10-18 00:10] VITALS: BP 124/67
--- NOTE | 2016-10-18 00:30 | NUR ---
Pt has a temp of 100.9, gave 2 tabs PO of Tylenol 325mg PRN for temp. Rates pain a 2/10 at this time. Denies need for pain medication. Call light in reach, will continue to monitor.
[2016-10-18] MEDS: ACETAMINOPHEN 325 MG TAB (TYLENOL) PO PRN ×2 (00:33→21:06)
[2016-10-18] MEDS: PIPERACILLIN/TAZOBACTAM 3.375 GM in SODIUM CHLORIDE 100 ML IV SCH ×5 (02:02→23:42)
--- NOTE | 2016-10-18 03:50 | NUR ---
VS are rechecked, temp is 97.6, pt continues to rate pain 2/10 at this time. Will continue to monitor.
[2016-10-18 04:22] VITALS: BP 118/73
[2016-10-18 05:54] LABS: MEAN CORPUSCULAR HEMOGLOBIN 30.6 PG (26.0-34.0); MEAN CORPUSCULAR VOLUME 93 FL (80-100); MEAN PLATELET VOLUME 9.2 FL (6.0-9.5); PLATELET COUNT 313 10^3uL (150-450); WHITE BLOOD COUNT 24.02 10^3uL (4.0-11.0)
[2016-10-18 06:07] LABS: BAND NEUTROPHILS % 7 % (0-6); EOSINOPHILS % 0 % (0-4); LYMPHOCYTES # 2.9 #; MONOCYTES # 0.5 #; MONOCYTES % 2 % (3-11); RBC MORPH NORMAL (NORMAL); SEGMENTED NEUTROPHILS % 79 % (51-67); TOTAL CELLS COUNTED 100
[2016-10-18 06:11] LABS: ANION GAP 16.4 MEQ/L (3-15)
[2016-10-18 07:28] VITALS: BP 113/68
--- NOTE | 2016-10-18 07:45 | NUR ---
Patient sleeping in bed upon shift assessment. Arouses easily to verbal stimuli. Reports generalized abdominal pain rated 2/10 on pain scale. Denies nausea, chills, or other distress. Abdomen soft and flat, non-tender to touch. Drain intact to buttock. Small amount of serosanguineous drainage present. Afebrile this am. 1L of 02 titrated to roomair for saturation of 96%. Updated on plan of care for shift. Call light in reach.
[2016-10-18] MEDS: ATENOLOL 50 MG (TENORMIN) TAB PO SCH ×2 (08:24→21:00)
--- NOTE | 2016-10-18 08:30 | NUR ---
Patient maintaining oxygen saturation of 94% on roomair. Will continue to monitor.
--- NOTE | 2016-10-18 08:50 | Progress Note (E) ---
Progress Note Surgery note Subjective: Minimal pain. No nausea. Voiding without difficulty. Objective: Temp 100.9 over night. BP and pulse normal. Required supplemental O2 overnight (after sedation for the procedure). Has voided. Lungs clear, abdomen soft with minimal suprapubic tenderness. No peritoneal signs. Normal bowel sounds. Drainage serosanguinous, 15 ml overnight. WBC improved to 24k today. Glucose 163. Impression: Stable. Recommendations: I have asked the hospitalist to evaluate regarding medical issues, especially her diabetes. Pulmonary toilet. Continue Rx. UMA BELTRAN MD Oct 18, 2016 08:50
--- NOTE | 2016-10-18 09:54 | NUR ---
MED REC COMPLETED-current med list obtained from Ext Med History application and patient interview. Conducted by Pari Marcos, PharmD Candidate 2017.
[2016-10-18] MEDS: oxyCODONE IMMEDIATE RELEASE 5 MG (OXYIR) TAB PO PRN ×2 (10:12→17:01)
--- NOTE | 2016-10-18 10:37 | History and Physical (E) ---
History & Physical Hospitalist Consult Diabetic Management PCP: Feliberto Shore MD Surgeon- Dr Hobbs CC: Diabetic management HPI: Rayne is a 51 year old female s/p Appendectomy 10 days ago and now with a pelvic abscess and had a percutaneous drain placed in [place] yesterday. She is a known type 2 diabetic and we have been asked to consult for medical management. Last BS was 164. She takes Glyburide daily at home and can't remember her last A1C. Denies nausea or vomiting, no fevers reported. Antibiotics are managed per Surgery. Labs reviewed. She is eating a diabetic diet and tolerating it fairly well. PMH: HTN HLD C-Diff- s/p fecal transplant DM-2 Tobacco Abuse PSH: Sinus Surgery 2017 Ear Tubes 2017 T&A Left elbow tendon transfer Appendectomy 2017 Percutaneous Drain Left Gluteal Region 2017 ALLERGIES: Sulfa HOME MEDICATIONS: Please see list at end of report. FH: Parents Mom had CAD Father had COPD SH: , no children, lives in [place] and works at [employer], smokes but does not use alcohol ROS: CONSTITUTION: Denies weight loss or gain. Denies fever or chills. HEENT: No change in vision or hearing. No sores in mouth, sore throat. CV: No chest pain, palpitations. PULM: No cough, shortness of breath, difficulty breathing. GI: No upset stomach, nausea, vomiting, constipation, or diarrhea. No blood in stool. : No dysuria. No blood in urine. MS: endorses pain and tenderness at drain site NEURO: No numbness or tingling. No weakness. INTEG: No rashes, lesions, or sores. ENDO: No heat or cold intolerance. No polydipsia or polyuria. HEME/LYMPH: No easy bruising or bleeding. No swollen glands. PSYCH: No change in mood or behavior. OBJECTIVE Vitals: Vital Signs Date Time Temp Pulse Resp B/P Pulse Ox O2 Delivery O2 Flow Rate FiO2 10/18/16 09:08 94 Room air 10/18/16 07:28 97.2 83 18 113/68 10/17/16 06:03 2 I & O Past 24 hrs 10/18/16 07:00 Intake Total 1360 ml Output Total 45 ml Balance 1315 ml Intake Oral 1100 ml IV Total 260 ml Output Urine Total 0 ml Drainage Total 45 ml GEN: Awake, alert, oriented, NAD- family at bedside HEENT: EOMI, PERRL, moist oral mucosa. CV: RRR S1 S2 normal with no murmur LUNGS: CTA B ABD: Soft, NT/ND with normal bowel sounds. Left Gluteal region- percutaneous drain with minimal output EXTR: No C/C/E. Normal peripheral pulses. INTEG: No rash. NEURO: No focal motor neuro deficit. Weight: 77.9 kg LABS: CBC BMP Last 24 Hrs 10/18/16 05:40 Laboratory Results Past 24 Hrs 10/18/16 05:40: Absolute Band Neutrophils 1.7, Anion Gap 16.4, BUN/Creatinine Ratio 12, Band Neutrophils % 7, Basophils # (Auto) , Basophils # (Manual) 0.0, Basophils % ( Manual) 0, Basophils (%) (Auto) , Blood Morphology Comment Normal, Blood Urea Nitrogen 10, Calcium Level 9.0, Carbon Dioxide Level 24, Chloride Level 105, Creatinine 0.84, Differential Total Cells Counted 100, Eosinophils # 0.0, Eosinophils # (Auto) , Eosinophils % (Manual) 0, Eosinophils (%) (Auto) , Estimat Glomerular Filtration Rate 85.8, Estimated GFR (Non- 70.9, Glucose Level 163, Hematocrit 35.50, Hemoglobin 11.7, Lymphocytes # 2.9, Lymphocytes # (Auto) , Lymphocytes % (Manual) 12, Lymphocytes (%) (Auto) , Mean Corpuscular Hemoglobin 30.6, Mean Corpuscular Hemoglobin Concent 33.0, Mean Corpuscular Volume 93, Mean Platelet Volume 9.2, Monocytes # 0.5, Monocytes # ( Auto) , Monocytes % (Manual) 2, Monocytes (%) (Auto) , Neutrophils # 19.0, Neutrophils # (Auto) , Neutrophils (%) (Auto) , Platelet Count 313, Potassium Level 4.4, Red Blood Count 3.82, Red Cell Distribution Width 13.6, Segmented Neutrophils % 79, Sodium Level 141, White Blood Count 24.02 CT SCAN: INDICATION: Pain. 10 days postop appendectomy. Compared with study 10/06/2016. FINDINGS: There has been interval appendectomy. There is a rim-enhancing new somewhat bilobed-configured fluid collection in the cul-de-sac measuring 6.6 cm transverse with maximal AP dimension 2.2 cm and measuring 2.8 cm cephalocaudal in the coronal reconstructions. Some thickening of the adjacent rectosigmoid which may be secondary inflammation as well as some presacral edema. No pericecal fluid collection. Bibasilar partial atelectasis. The liver, gallbladder, bile ducts, spleen, adrenals, pancreas all unremarkable. There is atherosclerotic aortic disease without aneurysm. No abdominal wall fluid collection. The urinary bladder unremarkable with no intravesical air. There is no hydronephrosis. IMPRESSION: Rim-enhancing fluid collection in the pelvic cul-de-sac suspicious for abscess with adjacent edema and regional inflammatory change. No pericecal fluid collection. Interval appendectomy noted. Unobstructed urinary tracts. Bibasilar partial atelectasis. ASSESSMENT/PLAN: Ashleigh is a 51 year old female admitted by Surgery for a pelvic abscess s/p Appendectomy 10 days ago- s/p percutaneous drain placement yesterday 10-17-16 in [place]. She is on Pip-Tazo IV now- no culture found on drainage yet- ordered DM-2- following accu-checks, on Glyburide- would like DM education as she has been Diabetic 2 years and does not check her sugars at home HTN- stable- Metoprolol HLD- stable- Lipitor Tobacco Abuse Anxiety- stable- Alprazolam F/V/E- tolerating diabetic diet Code status- Full code Disposition- Inpatient status- will follow along with surgery. check A1C- try to set up DM education. Awaiting culture report on percutaneous drainage Dr Douglas' note: pt is resting with comfort. She says she is greatfull her pain is now only a 2 where it was a 10 yesterday. we shall monitor her glucose levelsand see her daily. Thanku for allowing us to help care for this pleasant lady. I have read and concur with Ms Taylor's findings inthis H and P. Allergies/Home Medications Allergies: Coded Allergies: Sulfa (Sulfonamide Antibiotics) (Verified Allergy, Unknown, 10/17/16) Reported Home Medications Scheduled Atenolol (Atenolol) 50 MG PO DAILY (Reported) Atorvastatin (Lipitor) 40 MG PO DAILY (Reported) Citalopram Hydrobromide (Citalopram Hydrobromide) 40 MG PO DAILY (Reported) Colesevelam HCl (Welchol) 1,250 MG PO DAILY (Reported) Fluticasone Furoate (Flonase Sensimist) 1-2 SPRAYS NSEACH DAILY (Reported) Glimepiride (Glimepiride) 2 MG PO DAILY (Reported) Scheduled PRN Alprazolam (Alprazolam) 0.25-0.5 MG PO Q8H PRN PRN ANXIETY (Reported) Oxycodone HCl (OxyIR) 5 MG PO Q4H PRN PRN Pain 4-6 numeric scale Discontinued Medications Lactobacillus Rhamnosus GG (Culturelle) 1 EACH PO DAILY (Reported) Discontinued Reason: Course completed Copies to: End of Report . Ana Paula Iglesias BUTTONHOLE MAKER Oct 18, 2016 10:37 VAHE DOUGLAS DO Oct 18, 2016 21:36
[2016-10-18 15:40] VITALS: BP 92/54
--- NOTE | 2016-10-18 18:18 | NUR ---
Patient rests in bed for long periods during day shift. Ambulates in almanzar independently on one occasion. Accucheck prior to supper = 114. Tolerating medium diabetic tray well. Reports pain at drain site rated 2/10 on pain scale. Drain intact and draining small amount of serosanguineous drainage. Remains afebrile throughout day. Call light in reach.
--- NOTE | 2016-10-18 19:00 | NUR ---
DRAIN FLUSHED PER CHARMAINE HOOKS.
[2016-10-18 20:24] VITALS: BP 97/48
--- NOTE | 2016-10-18 21:03 | NUR ---
JAMA CABAN. BP-97/48
--- NOTE | 2016-10-19 00:10 | NUR ---
Pt. awakens easily; resting in sideways position on bed; "It is comfortable for me-isn't that great?" Pt. denies need for pain med at this time; Zosyn infusing without difficulty at LAC; SCD's operational. Drain secure at left buttock. H2O and call light within reach.
[2016-10-19 00:20] VITALS: BP 94/57
[2016-10-19 04:00] VITALS: BP_SYST 105; BP_SYST 125; BP_DIAS 65; BP_DIAS 74
[2016-10-19] MEDS: PIPERACILLIN/TAZOBACTAM 3.375 GM in SODIUM CHLORIDE 100 ML IV SCH ×3 (06:06→18:26)
--- NOTE | 2016-10-19 06:30 | NUR ---
Accucheck is 139 this morning. Zosyn infusing at 25 cc/hr without difficulty at LAC. Pt. tolerates SCD's very well. Left buttock drain remains intact; pt. denies need for pain med at this time. Pt. requests a laxative to be given today; also states she is ready for a shower. Pt. slept in long intervals last night; utilizes ear plugs as sleep aid. H2O and call light within reach. Pt. is cooperative and pleasant.
[2016-10-19 07:59] VITALS: BP 103/65
[2016-10-19 08:41] LABS: BASOPHILS % (AUTO) 0 % (0-2); EOSINOPHILS # (AUTO) 0.3 10^3uL; EOSINOPHILS % (AUTO) 2 % (0-4); LYMPHOCYTES # (AUTO) 1.9 X10^3; MEAN CORPUSCULAR HEMOGLOBIN 30.1 PG (26.0-34.0); MEAN CORPUSCULAR HGB CONC 32.5 g/dL (31.0-37.0); MEAN CORPUSCULAR VOLUME 93 FL (80-100); MEAN PLATELET VOLUME 9.7 FL (6.0-9.5); MONOCYTES # (AUTO) 0.8 X10^3; MONOCYTES % (AUTO) 6 % (3-11); NEUTROPHILS # (AUTO) 11.1 X10^3; NEUTROPHILS % (AUTO) 79 % (51-67); PLATELET COUNT 331 10^3uL (150-450); WHITE BLOOD COUNT 14.15 10^3uL (4.0-11.0)
--- NOTE | 2016-10-19 09:00 | NUR ---
Pt up ad kali in room at this time. Skin warm, dry. Drain to L buttock intact. Resprs nonlabored, even on RA. Pt denies need for pain medicine. Denies needs.
[2016-10-19] MEDS: ATENOLOL 50 MG (TENORMIN) TAB PO SCH ×2 (09:43→20:42)
--- NOTE | 2016-10-19 09:54 | Progress Note (E) ---
Progress Note S: Awake and alert Up walking the halls- tolerating diet, not vomiting- Blood sugar 139 this am O: Vital Signs Date Time Temp Pulse Resp B/P Pulse Ox O2 Delivery O2 Flow Rate FiO2 10/19/16 07:59 98.7 73 20 103/65 93 Room air 0.00 I & O Past 24 hrs 10/19/16 07:00 Intake Total 2269 ml Output Total 610 ml Balance 1659 ml Intake Oral 1639 ml IV Total 630 ml Output Urine Total 600 ml Drainage Total 10 ml CBC BMP Last 24 Hrs 10/19/16 08:25 Laboratory Results Past 24 Hrs 10/19/16 08:25: Basophils # (Auto) 0.0, Basophils (%) (Auto) 0, Eosinophils # (Auto) 0.3, Eosinophils (%) (Auto) 2, Hematocrit 34.80, Hemoglobin 11.3, Lymphocytes # (Auto ) 1.9, Lymphocytes (%) (Auto) 13, Mean Corpuscular Hemoglobin 30.1, Mean Corpuscular Hemoglobin Concent 32.5, Mean Corpuscular Volume 93, Mean Platelet Volume 9.7, Monocytes # (Auto) 0.8, Monocytes (%) (Auto) 6, Neutrophils # (Auto ) 11.1, Neutrophils (%) (Auto) 79, Platelet Count 331, Red Blood Count 3.75, Red Cell Distribution Width 13.4, White Blood Count 14.15 EXAM: Alert and oriented in NAD HEENT: PERRLA Neck Supple Lungs clear CV S1S2 Abdomen soft nontender Drain in place Ext: no cyanosis Neuro: No focal neuro deficits CT SCAN: INDICATION: Pain. 10 days postop appendectomy. Compared with study 10/06/2016. FINDINGS: There has been interval appendectomy. There is a rim-enhancing new somewhat bilobed-configured fluid collection in the cul-de-sac measuring 6.6 cm transverse with maximal AP dimension 2.2 cm and measuring 2.8 cm cephalocaudal in the coronal reconstructions. Some thickening of the adjacent rectosigmoid which may be secondary inflammation as well as some presacral edema. No pericecal fluid collection. Bibasilar partial atelectasis. The liver, gallbladder, bile ducts, spleen, adrenals, pancreas all unremarkable. There is atherosclerotic aortic disease without aneurysm. No abdominal wall fluid collection. The urinary bladder unremarkable with no intravesical air. There is no hydronephrosis. IMPRESSION: Rim-enhancing fluid collection in the pelvic cul-de-sac suspicious for abscess with adjacent edema and regional inflammatory change. No pericecal fluid collection. Interval appendectomy noted. Unobstructed urinary tracts. Bibasilar partial atelectasis. ASSESSMENT/PLAN: Ashleigh is a 51 year old female admitted by Surgery for a pelvic abscess s/p Appendectomy 10 days ago- s/p percutaneous drain placement yesterday 10-17-16 in [place]. She is on Pip-Tazo IV now- no culture found on drainage yet- ordered DM-2- following accu-checks, on Glyburide- would like DM education as she has been Diabetic 2 years and does not check her sugars at home, A1C 6.6 HTN- stable- Metoprolol HLD- stable- Lipitor Tobacco Abuse Anxiety- stable- Alprazolam F/V/E- tolerating diabetic diet Code status- Full code Disposition- Inpatient status- will follow along with surgery. Awaiting culture report on percutaneous drainage Dr Douglas' Note 10/18/2016: is feeling much better. Pain level not above a "2 " Mrs Smith denies chest pains,abdominal pains and any pain or discomfort when walking. She denies any sob. lungs are CTA,BILATERALLY HEART SHOWS A RRR abdomen is non tender and bs are physiologic assessment: Rayne is a 51 year old female admitted by Surgery for a pelvic abscess s/p Appendectomy 10 days ago- s/p percutaneous drain placement yesterday 10-17-16 in [place]. She is on Pip-Tazo IV now- no culture found on drainage yet- ordered DM-2- following accu-checks, on Glyburide- would like DM education as she has been Diabetic 2 years and does not check her sugars at home, A1C 6.6 HTN- stable- Metoprolol HLD- stable- Lipitor Anxiety Tobacco abuse Plan : Continue antibiotics and revise if necessary when abscess C and S comes back soon.Continue to monitor blood glucose. I have discussed this patient with Ms Iglesias and have read the progress note penned by her. I agree with her findings and plan. Ana Paula Iglesias Jonathan ROJAS Oct 19, 2016 09:54 VAHE DOUGLAS DO Oct 19, 2016 15:59
[2016-10-19] MEDS: ACETAMINOPHEN 325 MG TAB (TYLENOL) PO PRN (11:28)
--- NOTE | 2016-10-19 11:30 | NUR ---
PRN Tylenol given at this time for c/o rectal pain. Denies other needs.
[2016-10-19 11:31] VITALS: BP 101/62
[2016-10-19] MEDS ORDERED: POLYETHYLENE GLYCOL 17 GM (MIRALAX) PACKET PO PRN (12:20)
[2016-10-19] MEDS ORDERED: SODIUM CHLORIDE 100 ML ONE (12:41)
--- NOTE | 2016-10-19 12:42 | Progress Note (E) ---
Progress Note Surgery note Subjective: Minimal discomfort at the drain site. Positive flatus, but no BM. Feels a little constipated. No abdominal pain or nausea. Void without difficulty. Objective: Afebrile. Vitals stable. Abdomen soft, nontender with normal BS. Drain site without erythema, crepitance or fluctuance. Drainage serous, 10 mll/ day. Nurses report no problems flushing the catheter. Cultures pending. Cytology showed leucocytosis with neutrophils. WBC today down to 14K. Blood sugar 139. Impression: Improved Recommendations: Continue current Rx. Prn Miralax. Hospitalist following for medical issues. UMA BELTRAN MD Oct 19, 2016 12:42
[2016-10-19] MEDS ORDERED: NS 100 ML (IVPB) BAG IV PRN (12:45)
--- NOTE | 2016-10-19 15:30 | NUR ---
Drain flushed with 10cc NS. Distal tubing appeared clotted, so fluid was drained into collection bag to clear the tubing. Pt tolerated this fairly, states it's slightly uncomfortable. Denies other needs.
[2016-10-19 15:49] VITALS: BP 98/63
--- NOTE | 2016-10-19 16:00 | NUR ---
PRN Miralax given at this time per pt request. Denies other needs.
--- NOTE | 2016-10-19 17:09 | NUR ---
Pt ambulates in almanzar independently this shift. Drain flushed with no difficulties, though procedure is somewhat uncomfortable for pt. SL intact. Skin warm, dry. Resprs nonlabored, even on RA. Pt denies needs at this time.
--- NOTE | 2016-10-19 19:45 | NUR ---
Patient c/o anxiety. Will call for order.
[2016-10-19] MEDS ORDERED: ALPRAZolam 0.5 MG (XANAX) TAB PO PRN (20:10)
--- NOTE | 2016-10-19 20:30 | NUR ---
Order received and noted. Patient has calmed down and no longer feels need to take anti-anxiety medication. Does request some pain medication.
[2016-10-19 20:31] VITALS: BP 110/66
[2016-10-19] MEDS: oxyCODONE IMMEDIATE RELEASE 5 MG (OXYIR) TAB PO PRN (20:43)
[2016-10-19] MEDS: SODIUM CHLORIDE FLUSH 10 ML SYR IV PRN (20:47)
--- NOTE | 2016-10-19 21:00 | NUR ---
Patient drain flushed per order. Serosanguineous fluid draining into tube. Patient uncomfortable during this procedure.
--- NOTE | 2016-10-19 21:30 | NUR ---
Patient settled into bed and reports discomfort has resolved.
[2016-10-20] MEDS: SODIUM CHLORIDE FLUSH 10 ML SYR IV PRN ×2 (00:01→05:46)
[2016-10-20] MEDS: PIPERACILLIN/TAZOBACTAM 3.375 GM in SODIUM CHLORIDE 100 ML IV SCH ×2 (00:01→05:49)
[2016-10-20 00:06] VITALS: BP 110/67
[2016-10-20 04:24] VITALS: BP 119/73
--- NOTE | 2016-10-20 05:54 | NUR ---
Since receiving pain medicine at , patient has had no complaints and denies needs. She has rested quietly with eyes closed throughout the night. Arouses easily.
[2016-10-20 06:14] LABS: BASOPHILS % (AUTO) 0 % (0-2); EOSINOPHILS # (AUTO) 0.3 10^3uL; EOSINOPHILS % (AUTO) 3 % (0-4); LYMPHOCYTES # (AUTO) 1.8 X10^3; MEAN CORPUSCULAR HEMOGLOBIN 30.2 PG (26.0-34.0); MEAN CORPUSCULAR HGB CONC 32.9 g/dL (31.0-37.0); MEAN CORPUSCULAR VOLUME 92 FL (80-100); MEAN PLATELET VOLUME 9.6 FL (6.0-9.5); MONOCYTES # (AUTO) 0.9 X10^3; MONOCYTES % (AUTO) 9 % (3-11); NEUTROPHILS # (AUTO) 6.6 X10^3; NEUTROPHILS % (AUTO) 68 % (51-67); PLATELET COUNT 320 10^3uL (150-450); WHITE BLOOD COUNT 9.76 10^3uL (4.0-11.0)
[2016-10-20 06:32] LABS: ANION GAP 14.7 MEQ/L (3-15)
[2016-10-20 07:52] VITALS: BP 118/68
--- NOTE | 2016-10-20 08:51 | Progress Note (E) ---
Progress Note Surgery note Subjective: Had 4 watery BM's after Miralax. No pain. No blood in stool. No nausea. Complains that catheter irrigation is painful. No symptoms. Objective: Afebrile, vitals stable. Drain has serous, clear fluid, 10 ml/day. Abdomen soft, nontender. Normal BS. Drain site without tenderness, fluctuance, erythema. WBC today normal. Blood glucose 108. Cultures pending. Impression: Doing well clinically. Concern for recurrent C. Diff. Recommendations: Stop drain irrigation. Send stool for C. Diff. Check on culture results. UMA BELTRAN MD Oct 20, 2016 08:51
[2016-10-20] MEDS ORDERED: ALPRAZolam 0.5 MG (XANAX) TAB PO PRN (09:00)
[2016-10-20] MEDS: ATENOLOL 50 MG (TENORMIN) TAB PO SCH ×2 (09:01→20:41)
--- NOTE | 2016-10-20 10:48 | NUR ---
Nutrition Follow Up: Student Dean GARCÍA provided initial diabetes education yesterday in my absence, though she said pt. wasn't feeling well and so the consult was brief. Visited with pt. today at-length about her diabetes and questions that she has. Pt. was open and honest about feeling angry that she had never received diabetes education in the past two years since diagnosis, and she appears to be struggling with not being able to check her blood sugars because shes been poked and prodded so much in the past few weeks. She acknowledged that other procedures were more painful than finger sticks, and yet the hard part for her is that she has to do them to herself. She is not quite ready to do this, and stated her first goal is to get herself home to her own bed and finish healing from the abscess. She is interested in outpatient education, and I explained her options--seeing me for MNT (medical nutrition therapy) or going to the [facility] for DSME (diabetes self-mgmt education). Pt. plans to call me after DC and I will let her know if insurance covers either one. Weight today: N/A since admission (171.3#/77.9 kg) Labs: glucose 108 1. Although pt. is not at the point of being able to physically check her own sugar yet, we had a very good conversation about how she is dealing with this and what she needs to move forward. This is part of the behavior change process and is healthy and normal. Pt. is not in denial, but rather needs a little bit of time to process things. We talked about what she needs to have in place in order to be in charge of her diabetes, rather than the other way around, and pt. was very much on board with ways of changing her thought process to be helpful instead of full of fear. 2. Pt. will need a referral from physician at discharge either for MNT or DSME, whichever pt. chooses, for outpatient diabetes education.
[2016-10-20] MEDS: CIPROFLOXACIN (CIPRO) 500 MG TABLET PO SCH ×2 (10:50→20:41)
--- NOTE | 2016-10-20 11:14 | Progress Note (E) ---
Progress Note October Dr Umanzor' Note Mrs. Smith now c/o some diarrhea. She has had 4 episodes. She denies chest pain,soa,abdominalpain and leg pains. heart-rrr,no murmur lungs-cta,bilaterally abdomen- bs physiologic, non tender extremities- no c/c/edema assessment: a pelvic abscess s/p Appendectomy found 10 days ago- s/p percutaneous drain placement 10-17-16 in [place]. She is on Pip-Tazo IV now- no culture found on drainage yet- ordered DM-2- following accu-checks, on Glyburide- would like DM education as she has been Diabetic 2 years and does not check her sugars at home HTN- stable- Metoprolol HLD- stable- Lipitor Tobacco Abuse anxiety Plan : At patient request we have moved her diet to clear liquids,that we believe to be a good idea we shall continue current antibiotics, wbc now down to a normal number ; we await a stool sample for c. dif culture. VAHE UMANZOR DO Oct 20, 2016 11:14
[2016-10-20 11:27] VITALS: BP 117/74
[2016-10-20] MEDS: metroNIDAZOLE 500 MG (FLAGYL) TABLET PO SCH ×2 (13:52→22:20)
[2016-10-20 15:33] VITALS: BP 127/63
--- NOTE | 2016-10-20 17:21 | NUR ---
Uneventful day shift. Pt up ad kali in room, pt has ambulated in halls multiple times. Tolerates this well. Has denied need for pain medicine this shift. Skin warm, dry, intact. Resprs nonlabored, even on RA. No drain output noted this shift. Pt had 2 bouts of diarrhea after breakfast this am, drank only CL for the afternoon, and advanced back to med diab diet this evening per Dr Hobbs. No additional bouts of diarrhea. Pt denies needs at this time.
[2016-10-20] MEDS: oxyCODONE IMMEDIATE RELEASE 5 MG (OXYIR) TAB PO PRN (19:21)
--- NOTE | 2016-10-20 19:25 | NUR ---
OxyIR given at this time for pain rated "4" in back/legs/general areas. Pt. resp are even and unlabored on room air. Pt. requested drain bag be emptied; "It's getting full". Drain bag inspected; pt. is shown only 1-2 cc's presently accumulated; ok to wait. Pt.'s at bedside. Call light and H2O within reach.
[2016-10-20 19:47] VITALS: BP 120/63
--- NOTE | 2016-10-20 20:55 | NUR ---
Pt. ambulating hallways; slow yet steady gait.
--- NOTE | 2016-10-20 22:20 | NUR ---
Pt. takes PO antibiotic without difficulty; SCD's applied bilaterally; call light and H2O within reach. Pt. states the pain medication "has helped"; pt. conversational and pleasant.. Pt. states she is 'ready for sleep'.
[2016-10-21 00:09] VITALS: BP 126/70
--- NOTE | 2016-10-21 00:35 | NUR ---
Pt. resting quietly; resp are even and unlabored on room air; ear plugs in bilaterally; SCD's operational; call light and H2O within reach. Pt. appears to be in no distress.
[2016-10-21 04:03] VITALS: BP 133/79
[2016-10-21 05:35] LABS: BASOPHILS % (AUTO) 1 % (0-2); EOSINOPHILS # (AUTO) 0.4 10^3uL; EOSINOPHILS % (AUTO) 4 % (0-4); LYMPHOCYTES # (AUTO) 2.5 X10^3; MEAN CORPUSCULAR HEMOGLOBIN 30.3 PG (26.0-34.0); MEAN CORPUSCULAR HGB CONC 33.3 g/dL (31.0-37.0); MEAN CORPUSCULAR VOLUME 91 FL (80-100); MEAN PLATELET VOLUME 9.6 FL (6.0-9.5); MONOCYTES # (AUTO) 0.8 X10^3; MONOCYTES % (AUTO) 10 % (3-11); NEUTROPHILS # (AUTO) 4.5 X10^3; NEUTROPHILS % (AUTO) 54 % (51-67); PLATELET COUNT 354 10^3uL (150-450)
[2016-10-21] MEDS: metroNIDAZOLE 500 MG (FLAGYL) TABLET PO SCH (06:11)
[2016-10-21 06:12] LABS: ANION GAP 15.1 MEQ/L (3-15)
--- NOTE | 2016-10-21 06:12 | NUR ---
Flagyl PO given. Pt. completes menu selection for today. Pt is resting on right side; drain intact at left buttock with scant drainage noted; pt. has been ambulatory about room and hallway this shift. Pt. states she did not sleep well; no particular reason mentioned. Reassurance given. Pt. denies need for pain med currently. Call light and H2O within reach.
--- NOTE | 2016-10-21 06:40 | NUR ---
Accucheck is 93 this morning.
[2016-10-21 07:22] VITALS: BP 135/82
[2016-10-21] MEDS: CIPROFLOXACIN (CIPRO) 500 MG TABLET PO SCH (09:17)
[2016-10-21] MEDS: ATENOLOL 50 MG (TENORMIN) TAB PO SCH (09:17)
[2016-10-21] MEDS: ACETAMINOPHEN 325 MG TAB (TYLENOL) PO PRN (09:28)
--- NOTE | 2016-10-21 09:35 | NUR ---
Dr. Douglas at bedside. Dr. Hobbs saw patient prior to Dr. Douglas.
--- NOTE | 2016-10-21 09:40 | Progress Note (E) ---
Progress Note Surgery note Subjective: Patient feels well. No pain or nausea. Still with occasional loose , but not watery BM. Void without difficulty. Objective: Afebrile, vitals stable. Minimal serous drainage via catheter. Catheter site without erythema, tenderness. Abdomen soft, nontender with normal BS. C. Diff negative. No additional growth on abscess fluid. WBC and glucose normal today. Impression: Doing well. Recommendations: Discharge home on Cipro/Flagyl. Repeat stool C. Diff at home. Drain care demonstrated. Return to office Sunday. Follow up on fluid cultures. UMA BELTRAN MD Oct 21, 2016 09:24
--- NOTE | 2016-10-21 09:50 | Discharge Instructions (E) ---
Discharge Instructions Instructions Keep buttock drain site clean and dry. Do not change dressing. Empty and recharge suction on the drain as instructed. Collect stool specimen as instructed and bring to the lab for C. diff. testing. Call for increased pain, fever over 100.5, wound redness. Activity Instructions Normal as is comfortable. Doctor's Appointment October [address] Hobbs. Follow up with your primary care doctor to evaluate diabetes. Discharge Diet: Carbohydrate controlled UMA HOBBS MD Oct 21, 2016 09:49
[2016-10-21] MEDS ORDERED: TRM50T PO (09:54)
[2016-10-21] MEDS ORDERED: CPR500T PO (09:54)
[2016-10-21] MEDS ORDERED: METR500T17 PO (09:54)
--- NOTE | 2016-10-21 10:13 | NUR ---
Reviewed discharge medications with patient. Provided patient handout information for new medications. No additional questions or concerns. Patient verbalized understanding of medications.
--- NOTE | 2016-10-21 10:23 | Progress Note (E) ---
Progress Note October ' Note : Mrs Smith Feel well. She denie pain in her chest,in her abdomen and denies soa. She denies any lower extremity pain with walking. lungs are clear bilaterally; heart has a RRR abdomen is soft and not tender extremities show no c/c/ or edema. assessment :a pelvic abscess s/p Appendectomy found 10 days ago- s/p percutaneous drain placement 10-17-16 in [place]. DM-2- following accu-checks, on Glyburide- would like DM education as she has been Diabetic 2 years and does not check her sugars at home HTN- stable- Metoprolol HLD- stable- Lipitor Tobacco Abuse anxiety Plan: PT,IS ALMOST PAIN FREE; GLUCOSE HAS BEEN STABLE AND SHE IS READY TO GO RECUPERATE AT HOME. dR Mcwilliams SHALL DO THE DISCHARGE ORDERS. VAHE UMANZOR DO Oct 21, 2016 10:23
--- NOTE | 2016-10-21 10:23 | NUR ---
Stool Specimen containers x 2 sent home with patient and instructions given to return specimen to lab.
--- NOTE | 2016-10-21 10:23 | NUR ---
Dismissed to home per amb accompanied by spouse and Mark CAGLE. Alert and oriented x4, skin w/p/d,. Resp unlabored. Gait steady.
--- NOTE | 2016-10-23 09:34 | DISCHARGE SUMMARY ---
ADMISSION DATE: 10/17/2016 DISCHARGE DATE: 10/21/2016 DISCHARGE DIAGNOSES: 1. Postoperative pelvic abscess. 2. Noninsulin dependent diabetes. 3. Hypertension. PROCEDURES: CT guided transgluteal percutaneous drainage of pelvic abscess by radiology on 10/17/2016. CONSULTANTS: Hospitalist service PRESENT ILLNESS AND POSITIVE PHYSICAL FINDINGS: This patient presented to the emergency room on the day of admission with suprapubic pain, which had begun the day of admission, but progressed to severe proportions. The patient had undergone laparoscopic appendectomy for appendicitis 10 days previously. Pertinent exam findings revealed mild suprapubic tenderness with voluntary guarding to deep palpation. A pelvic exam revealed mild cervical motion tenderness with no palpable mass. SIGNIFICANT X-RAY AND LABORATORY DATA: Laboratory values were significant for a white count of 30,390 with 89% polys. No bands. Metabolic profile was significant for glucose of 165. C-reactive protein was elevated at 4.70. Lipase was normal. Urine analysis showed 20 to 50 red cells per high-powered field, otherwise negative. Of additional note, the patient had a history of intractable C. 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 IMAGING: CT scan imaging showed a pelvic abscess. HOSPITAL COURSE AND TREATMENT: The patient was admitted. She was transferred to [place] for transgluteal CT guided drainage of the pelvic abscess. Cultures from this revealed abundant bacteroides fragilis, otherwise negative to date of discharge. With this procedure and intravenous Zosyn antibiotics, the patient's white count returned to normal. Low grade fever at admission also returned to normal and her pain disappeared. The patient was changed to Cipro and Flagyl line of treatment prior to discharge. Drainage at the time of discharge is minimal and serosanguineous. CONDITION ON DISCHARGE: Good. PROGNOSIS: Good. DISPOSITION: 1. The patient is to recharge suction and empty bag as instructed for the drain as needed and daily. She is to keep the drain site clean and dry. She may resume normal activity otherwise. 2. Warning signs of increased pain or fever discussed with the patient. DISCHARGE MEDICATIONS: Include home medications, which are 1. Alprazolam 0.5 mg every 8 hours p.r.n. for anxiety. 2. Atenolol 50 mg daily. 3. Atorvastatin 40 mg daily. 4. Welchol 1250 mg daily. 5. Glimepiride 2 mg daily. 6. The patient is to discontinue the Percocet previously given and, instead, prescribed tramadol 50 to 100 mg every 6 hours as needed for pain. 7. The patient is also prescribed an additional 3-day course of Cipro 500 mg twice daily and a 10 day course of Flagyl 500 mg 3 times daily. DISCHARGE INSTRUCTIONS: 1. Of note the patient had some diarrhea on the day prior to discharge; however, C-diff toxin titer is negative. The patient was to submit an additional stool sample after discharge. 2. The patient is to return to office 4 days for drain removal. 3. She is also to follow up with her primary physician within 2 weeks for further evaluation of her diabetes. She is instructed to maintain a carbohydrate controlled diet in the interim. Continue her medication. Glucose at discharge decreased from 165 on admission to 93.
== END 2016-10-21 10:23 | disposition home or self-care (01) | DRG 863 ==
LOC: ED 02:31 → MED/SURG 06:00
PROVIDERS: ADMIT Surgery; ATTEND Surgery
DX: T81.4XXA Infection following a procedure, initial encounter (principal); N73.0 Acute parametritis and pelvic cellulitis; I10 Essential (primary) hypertension; E11.9 Type 2 diabetes mellitus without complications; E78.5 Hyperlipidemia, unspecified; F41.9 Anxiety disorder, unspecified; Z72.0 Tobacco use; B96.6 Bacteroides fragilis [B. fragilis] as the cause of diseases classified elsewhere; Y83.8 Other surgical procedures as the cause of abnormal reaction of the patient, or of later complication, without mention of misadventure at the time of the procedure
CPT/HCPCS: 36415; 74022; 74177; 80048; 80053; 81003; 81015; 83036; 83690; 85025; 85610; 85730; 86140; 87324; 87449; 94760; 96361; 96365; 96375; 99283; 99284

== ENCOUNTER → 2016-10-17 | Outpatient (CLI) | payer OTHER ==
[~2016-10-17] MED LIST changes: +ALPR.5T PO; +ATN50T PO; +ATOR10TA PO; +ATOR40TA2 PO; +CITA40TA5 PO; +COLE625T PO; +FLUT9.9S16 NSEACH; +GLIM2TAB PO; +LACT1CAP39 PO; +OXC5T PO
== END ==
LOC: EMS 11:15
PROVIDERS: ATTEND Surgery
DX: R10.2 Pelvic and perineal pain (principal); T81.4XXA Infection following a procedure, initial encounter; N73.9 Female pelvic inflammatory disease, unspecified

== ENCOUNTER → 2016-10-21 | Outpatient (REF) | payer OTHER ==
[~2016-10-21] MED LIST changes: +CPR500T PO; +METR500T17 PO; +TRM50T PO
== END ==
LOC: LAB 10:58
DX: R19.7 Diarrhea, unspecified (principal)
CPT/HCPCS: 87324; 87449

== ENCOUNTER → 2016-10-25 | Outpatient (CLI) | payer OTHER | LOC: LAB 12:13 | PROVIDERS: ATTEND Surgery | DX: R19.7 Diarrhea, unspecified (principal) | CPT/HCPCS: 87324; 87449 ==